=== PATIENT | female | born 1985 | race Two or more races ===

== ENCOUNTER 2023-07-14 11:50 | Emergency (ER) | payer MEDICAID, OTHER ==
[~2023-07-14] VITALS: Ht 157.5 cm; Wt 89.0 kg
[2023-07-14 13:00] VITALS: BP 137/90; PULSE 89; RESP 18; O2SAT 99
== END 2023-07-14 14:47 | disposition left against medical advice (07) ==
LOC: EDBD 11:50 → ER 11:50
DX: R10.2 Pelvic and perineal pain (principal); Z53.21 Procedure and treatment not carried out due to patient leaving prior to being seen by health care provider